=== PATIENT | female | born 1955 | race Caucasian/White ===

== ENCOUNTER 2023-05-05 14:02 | Emergency (ER) | payer MEDICARE ==
[2023-05-05 14:59] LABS: #Eosinphils 0.1 thou/uL (0.0-0.7); #Lymphocytes 1.6 thou/uL (1.20-3.40); #Monocytes 0.3 thou/uL (0.11-0.59); #Neutrophils 3.6 thou/uL (1.40-6.50); %Basophils 0.8 % (0.0-1.0); %Eosinophils 1.4 % (0.0-10.0); %Lymphocytes 28.6 % (21.0-51.0); %Monocytes 5.8 % (0.0-10.0); %Neutrophils 63.4 % (42.0-75.0); Hematocrit 41.8 % (36.0-47.0); Hemoglobin 13.4 g/dL (12.0-16.0); Mean Corpuscular Hemoglobin 24.7 pg (27.0-31.0); Mean Corpuscular Volume 77.2 fl (78.0-98.0); Platelet Count 236 10x3/uL (130-400); RBC Distribution Width 13.2 % (11.5-14.5); Red Blood Cell (RBC) Count 5.42 mill/uL (4.20-5.40); White Blood Cell (WBC) Count 5.7 10x3/uL (4.8-10.8)
[2023-05-05 15:08] LABS: Anion Gap 19 mmol/L (10-20); BUN (Urea Nitrogen) 16 mg/dL (9.8-20.1); Calc. Creatinine Clearance 0 mL/min (70-130); Calcium 9.5 mg/dL (7.8-10.44); Carbon Dioxide 20 mmol/L (23-31); Chloride 103 mmol/L (98-107); Estimated GFR 69; Glucose 153 mg/dL (80-115); Potassium 3.7 mmol/L (3.5-5.1); Sodium 138 mmol/L (136-145)
[2023-05-05 15:09] LABS: ALT (SGPT) 25 U/L (8-55); AST (SGOT) 28 U/L (5-34); Albumin 4.3 g/dL (3.4-4.8); Alkaline Phosphatase 92 U/L (40-110); Bilirubin, Total 0.7 mg/dL (0.2-1.2); Globulin 3.3 g/dL (2.4-3.5); Protein, Total 7.6 g/dL (5.8-8.1)
[2023-05-05 15:10] LABS: Platelet Adequacy Comment Appears Adequate
[2023-05-05 15:11] LABS: MDiff Complete? YES
[2023-05-05] MEDS ORDERED: Metoclopramide HCl 10 MG TAB ONE (15:59)
[2023-05-05] MEDS ORDERED: Ipratropium/Albuterol 3 ML NEB ONE (15:59)
[2023-05-05] MEDS ORDERED: Morphine 4 MG/ML VIAL ONE (16:42)
[2023-05-05] MEDS ORDERED: Amoxicillin/Potassium Clav 875 MG TAB ONE (16:43)
[2023-05-05] MEDS ORDERED: Azithromycin 250 MG TAB ONE ×2 (16:43→17:11)
[2023-05-05] MEDS ORDERED: HYDROcodone/Acetaminophen 5/325 mg Tablet ONE (17:11)
[2023-05-05] MEDS ORDERED: predniSONE 20 MG TAB ONE (17:11)
== END 2023-05-05 17:40 | disposition home or self-care (01) ==
LOC: BURERS 14:02
DX: J22 Unspecified acute lower respiratory infection (principal); I10 Essential (primary) hypertension; E11.9 Type 2 diabetes mellitus without complications; E78.5 Hyperlipidemia, unspecified; I25.10 Atherosclerotic heart disease of native coronary artery without angina pectoris; K21.9 Gastro-esophageal reflux disease without esophagitis
CPT/HCPCS: 36415; 71046; 80053; 85025; J2270; J7512; J7620